=== PATIENT | female | born 1985 | race Caucasian/White ===

== ENCOUNTER 2021-12-07 11:19 | Emergency (ER) | payer OTHER ==
[2021-12-07 12:20] LABS: Appearance,Urine Cloudy (Clear); Bacteria,Urine Rare /hpf; Bilirubin,Urine Negative (Negative); Blood,Urine Trace (Negative); Color,Urine Yellow; Glucose,Urine (UA) Negative (Negative); Ketones,Urine Negative (Negative); Leukocyte Esterase,Urine Large (Negative); Mucus,Urine Occasional /hpf; Nitrite,Urine Negative (Negative); PH, Urine 6.5 (5.0-8.0); Protein,Urine Trace (Negative); RBC,Urine 4 /hpf (0-5); Specific Gravity,Urine 1.023 (1.001-1.035); Squamous Epithelial Cell,Urine 42 /hpf (0-4); Urobilinogen,Urine <2.0 mg/dL (<2.0); WBC,Urine 121 /hpf (0-5)
[2021-12-07] MEDS ORDERED: SODIUM CHLORIDE 0.9% 1,000 ML IV STA (13:30)
[2021-12-07] MEDS ORDERED: MORPHINE SULFATE 4 MG/ML SYRINGE IV STA ×2 (13:30→15:04)
--- NOTE | 2021-12-07 13:48 | ED ---
General Adult HPI - General Source: patient Mode of arrival: ambulatory Limitations: no limitations <Erickson Menjivar D - Last Filed: 12/07/21 15:04> <LeandraRob kraus Nilda - Last Filed: 12/07/21 15:57> - General Chief complaint: Abdominal Pain Stated complaint: abd pain Time Seen by Provider: 12/07/21 13:06 - History of Present Illness Initial comments: Dictation was produced using [employer] dictation software. please excuse any grammatical, word or spelling errors. Chief Complaint: 35-year-old female presents with 2-3 days of worsening suprapubic pain History of Present Illness: 35-year-old female she has no significant comorbidities. She presents to the ER for fever and worsening suprapubic pain for the last 2-3 days. Patient states the pain is severe. Denies any nausea. She does complain of fevers. No diarrhea. Patient denies any urinary symptoms. She has no history of diverticulitis. No history of abdominal surgery. She's been taking antipyretics at home for fever control. States that her symptoms have been getting worse probably her to come to the emergency room today. Patient has history of bilateral tubal ligation. The ROS documented in this emergency department record has been reviewed and confirmed by me. Those systems with pertinent positive or negative responses have been documented in the HPI. All other systems are other negative and/or noncontributory. PHYSICAL EXAM: General Impression: Alert and oriented x3, acute distress secondary to pain HEENT: Normocephalic atraumatic, extra-ocular movements intact, pupils equal and reactive to light bilaterally, mucous membranes moist. Cardiovascular: Heart regular rate and rhythm Chest: Able to complete full sentences, no retractions, no tachypnea Abdomen: Exquisite abdominal tenderness to the suprapubic space Musculoskeletal: Pulses present and equal in all extremities, no peripheral edema Motor: no focal deficits noted Neurological: CN II-XII grossly intact, no focal motor or sensory deficits noted Skin: Intact with no visualized rashes Psych: Normal affect and mood ED course: 35-year-old female presents to the emergency department fever and suprapubic abdominal pain. Vital signs upon arrival shows temperature 99.1, rest of vital signs within acceptable limits. Patient reports she took some antipyretic medication just prior to arrival in the emergency department. Laboratory evaluation obtained. Mild leukocytosis of 14.0. Metabolic panel is negative. Urinalysis shows findings likely reflecting urinary tract infection 121 white blood cells and 42 squamous epithelial cells. Given patient's exquisite abdominal pain there was concerns of intra-abdominal infection. Computed tomography scan of the abdomen and pelvis shows no acute processes. Patient reevaluated at the bedside she still complaining of severe pain. Patient given another dose of analgesics. She is given 1 g ceftriaxone. Patient care is signed out to Dr. Stinson for reevaluation at the bedside to determine final disposition. (Erickson Menjivar) - Related Data Home Medications Medication Instructions Recorded Confirmed busPIRone HCL 5 mg PO BID PRN 12/07/21 12/07/21 Previous Rx's Medication Instructions Recorded Cephalexin [Keflex] 500 mg PO TID 10 Days #30 cap 12/07/21 Allergies Allergy/AdvReac Type Severity Reaction Status Date / Time No Known Allergies Allergy Verified 12/07/21 13:39 Review of Systems ROS Other: All systems not noted in ROS Statement are negative. <Erickson Menjivar - Last Filed: 12/07/21 15:04> ROS Other: All systems not noted in ROS Statement are negative. <Rob Stinson - Last Filed: 12/07/21 15:57> ROS Statement: Those systems with pertinent positive or pertinent negative responses have been documented in the HPI. Past Medical History Past Medical History: Musculoskeletal Disorder Additional Past Medical History / Comment(s): hx fx spine 5 years ago History of Any Multi-Drug Resistant Organisms: None Reported Additional Past Surgical History / Comment(s): repair brachioplexus injury Past Anesthesia/Blood Transfusion Reactions: No Reported Reaction Past Psychological History: No Psychological Hx Reported Smoking Status: Former smoker Past Alcohol Use History: None Reported Past Drug Use History: None Reported - Past Family History Mother Family Medical History: No Reported History <Erickson Menjivar - Last Filed: 12/07/21 15:04> General Exam Limitations: no limitations <Erickson Menjivar - Last Filed: 12/07/21 15:04> Course Vital Signs 12/07/21 11:31 Temperature 99.1 F Pulse Rate 99 Respiratory 14 Rate Blood Pressure 117/85 O2 Sat by Pulse 96 Oximetry Medical Decision Making - Lab Data Result diagrams: 12/07/21 13:47 12/07/21 13:47 <Erickson Menjivar - Last Filed: 12/07/21 15:04> - Lab Data Result diagrams: 12/07/21 13:47 12/07/21 13:47 <Rob Stinson - Last Filed: 12/07/21 15:57> - Medical Decision Making 35-year-old female care signed out at shift change awaiting reevaluation. Imaging and laboratory studies have been completed. The patient and given symptomatic relief as well as IV antibiotics and IV fluids. I did reevaluate, vital signs stable. She has some lower abdominal tenderness bilaterally. CT sh ows normal appendix, no free fluid, no acute findings to explain the patient's pain. She does have a urinalysis which is suggestive of UTI. She had been given IV antibiotics. At this time I did offer observation for continue symptomatically versus home with close return parameters. The patient decides to go home at this time with strict return parameters. 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 She will be prescribed antibiotics. (Rob Stinson) - Lab Data Lab Results 12/07/21 12/07/21 12/07/21 Range/Units 11:47 13:47 13:47 WBC 14.0 H (3.8-10.6) k/uL RBC 4.54 (3.80-5.40) m/uL Hgb 13.5 (11.4-16.0) gm/dL Hct 42.3 (34.0-46.0) % MCV 93.3 (80.0-100.0) fL MCH 29.8 (25.0-35.0) pg MCHC 32.0 (31.0-37.0) g/dL RDW 13.0 (11.5-15.5) % Plt Count 258 (150-450) k/uL MPV 7.9 Neutrophils % 84 % Lymphocytes % 10 % Monocytes % 4 % Eosinophils % 1 % Basophils % 0 % Neutrophils # 11.7 H (1.3-7.7) k/uL Lymphocytes # 1.4 (1.0-4.8) k/uL Monocytes # 0.6 (0-1.0) k/uL Eosinophils # 0.1 (0-0.7) k/uL Basophils # 0.0 (0-0.2) k/uL Sodium 138 (137-145) mmol/L Potassium 4.3 (3.5-5.1) mmol/L Chloride 106 (98-107) mmol/L Carbon Dioxide 23 (22-30) mmol/L Anion Gap 9 mmol/L BUN 14 (7-17) mg/dL Creatinine 0.77 (0.52-1.04) mg/dL Est GFR (CKD-EPI)AfAm >90 (>60 ml/min/1.73 sqM) Est GFR (CKD-EPI)NonAf >90 (>60 ml/min/1.73 sqM) Glucose 85 (74-99) mg/dL Calcium 9.0 (8.4-10.2) mg/dL Lipase 30 (23-300) U/L Urine Color Yellow Urine Appearance Cloudy H (Clear) Urine pH 6.5 (5.0-8.0) Ur Specific [place] 1.023 (1.001-1.035) Urine Protein Trace H (Negative) Urine Glucose (UA) Negative (Negative) Urine Ketones Negative (Negative) Urine Blood Trace H (Negative) Urine Nitrite Negative (Negative) Urine Bilirubin Negative (Negative) Urine Urobilinogen <2.0 (<2.0) mg/dL Ur Leukocyte Esterase Large H (Negative) Urine RBC 4 (0-5) /hpf Urine WBC 121 H (0-5) /hpf Ur Squamous Epith Cells 42 H (0-4) /hpf Urine Bacteria Rare H (None) /hpf Urine Mucus Occasional H (None) /hpf Disposition <Erickson Menjivar - Last Filed: 12/07/21 15:04> Is patient prescribed a controlled substance at d/c from ED?: No Time of Disposition: 15:57 <Rob Stinson - Last Filed: 12/07/21 15:57> Clinical Impression: Abdominal pain, UTI (urinary tract infection) Disposition: HOME SELF-CARE Condition: Fair Instructions (If sedation given, give patient instructions): Abdominal Pain (ED), Urinary Tract Infection in Women (ED) Prescriptions: Cephalexin [Keflex] 500 mg PO TID 10 Days #30 cap Referrals: Sveta Malave DO [Primary Care Provider] - 1-2 days
[2021-12-07 13:57] LABS: Basophils % (A) 0 %; Eosinophils # (A) 0.1 k/uL (0-0.7); Eosinophils % (A) 1 %; HCT 42.3 % (34.0-46.0); HGB 13.5 gm/dL (11.4-16.0); Lymphocytes # (A) 1.4 k/uL (1.0-4.8); Lymphocytes % (A) 10 %; MCH 29.8 pg (25.0-35.0); MCV 93.3 fL (80.0-100.0); Mean Platelet Volume 7.9; Monocytes # (A) 0.6 k/uL (0-1.0); Monocytes % (A) 4 %; Neutrophils # (A) 11.7 k/uL (1.3-7.7); Neutrophils % (A) 84 %; Platelet Count 258 k/uL (150-450); RBC 4.54 m/uL (3.80-5.40)
[2021-12-07 14:18] LABS: African American GFR (CKD) >90 (>60 ml/min/1.73 sqM); Anion Gap 9 mmol/L; Blood Urea Nitrogen 14 mg/dL (7-17); Carbon Dioxide 23 mmol/L (22-30); Chloride 106 mmol/L (98-107); Glucose 85 mg/dL (74-99); Lipase 30 U/L (23-300); Non-African American GFR(CKD) >90 (>60 ml/min/1.73 sqM); Potassium 4.3 mmol/L (3.5-5.1); Sodium 138 mmol/L (137-145)
--- NOTE | 2021-12-07 14:34 | CT ---
EXAMINATION TYPE: CT abdomen pelvis w con DATE OF EXAM: 12/07/2021 COMPARISON: None HISTORY: Bilateral lower quadrant abdominal pain CT DLP: 847.8 mGycm CONTRAST: CT scan of the abdomen and pelvis is performed without Oral Contrast and with IV Contrast, patient in jected with 100 ml mL of Isovue 300. FINDINGS: LUNG BASES-: No visible nodule. No infiltrate. LIVER/GB: No calcified gallstones. No space occupying hepatic lesion. Biliary tree is of normal ca liber. PANCREAS: No inflammation. No distinct mass. SPLEEN: No splenic enlargement. No lesion seen. ADRENALS: No nodule. No thickening. KIDNEYS/BLADDER: No hydronephrosis. There are 2 nonobstructing calculi left kidney largest measuring 3 mm lower pole of the left kidney. 3 mm nonobstructing calculus mid pole right kidney. Couple small renal cysts seen bilaterally. No solid distinct renal mass. Urinary bladder grossly unremarkable. BOWEL: Normal retrocecal appendix Normal bowel caliber. No inflammation. GENITAL ORGANS: Right ovary and uterus are unremarkable. Left ovary demonstrates a small 1.5 cm foll icular cyst. No evidence for free fluid is time. LYMPH NODES: No greater than 1cm abdominal or pelvic lymph nodes are appreciated. AORTA: No significant abnormality. OSSEOUS STRUCTURES: No significant abnormality is seen. OTHER: No significant additional abnormality is seen. IMPRESSION: 1. Normal retrocecal appendix. 2. Nonobstructing nephrolithiasis seen bilaterally. 3. Left ovarian follicular cyst.
[2021-12-07] MEDS ORDERED: cefTRIAXone IN SWFI 1,000 MG/10 ML SYRINGE IVP STA (14:37)
[2021-12-07] MEDS ORDERED: KETOROLAC 15 MG/ML 1 ML VIAL IVP STA (15:55)
[2021-12-07 16:24] VITALS: BP 124/85; PULSE 73; RESP 16; TEMP 98.3
== END 2021-12-07 17:07 | disposition home or self-care (01) ==
LOC: EC 11:19
DX: N39.0 Urinary tract infection, site not specified (principal); Z87.891 Personal history of nicotine dependence
CPT/HCPCS: 36415; 80048; 83690; 85025; 81001; 81025; 74177; 96375; 99284; 96374; J2270; J0696; J1885; Q9967